=== PATIENT | female | born 1965 | race Caucasian/White ===

== ENCOUNTER → 2020-02-28 | Outpatient (CLI) | payer BC ==
[~2020-02-28] VITALS: Ht 163.8 cm; Wt 116.3 kg
[~2020-02-28] MED LIST: GLUCOPHAGE500 MG/TAB PO; LIPITOR 80MG80 MG PO; LOFIBRA160 MG PO; ZESTRIL 10MG10 MG PO
[2020-02-28 08:44] VITALS: BP 132/86; PULSE 74
== END ==
LOC: LIGHT 08:13
DX: E66.01 Morbid (severe) obesity due to excess calories (principal); Z68.41 Body mass index [BMI] 40.0-44.9, adult; E88.81 Metabolic syndrome and other insulin resistance; E11.9 Type 2 diabetes mellitus without complications; I10 Essential (primary) hypertension
CPT/HCPCS: G0463

== ENCOUNTER → 2020-03-14 | Outpatient (CLI) | payer BC ==
[~2020-03-14] VITALS: Ht 163.8 cm; Wt 112.3 kg
[2020-03-14 10:08] VITALS: BP 154/88; PULSE 87
== END ==
LOC: LIGHT 09:49
DX: E66.01 Morbid (severe) obesity due to excess calories (principal); Z68.41 Body mass index [BMI] 40.0-44.9, adult; E88.81 Metabolic syndrome and other insulin resistance; E11.9 Type 2 diabetes mellitus without complications; I10 Essential (primary) hypertension
CPT/HCPCS: G0463